=== PATIENT | male | born 1990 | race Two or more races ===

== ENCOUNTER 2018-09-10 08:57 | Emergency (ER) | payer SELFPAY ==
[~2018-09-10] VITALS: Ht 172.7 cm; Wt 124.7 kg
[2018-09-10] MEDS ORDERED: ONDANSETRON 4 MG TAB.RAPDIS PO ONE (09:00)
[2018-09-10] MEDS ORDERED: IV NS 0.9% 1,000 ML BAG IV ONE ×3 (09:00→13:00)
--- NOTE | 2018-09-10 09:10 | NUR ---
BIBA RA 89 [place] found with [place] paraphernelia and tourniquet on arm BS 144 Given Narcan on the scene. Patient a/ox1, unable to say whole name. Restless and agitated, patient has an established IV line on Left EJ G18 [employer]. Patient pulled out nasal trumpet, placed on at 2lpm via nc at 97%. Patient placed on a four point restraint, due to restlessness, agitation and attempting to pull out lines. Received order from MD. will continue to monitor for circulation and skin breakdown. Patient kept comfortable, but still restless in bed. Placed on monitor VS. BP 167/96 HR 133 R24 spo2 100%. unable to take temp at this time.
[2018-09-10 09:20] LABS: BASOPHILS % (AUTO) 0.2 % (0.0-2.0); EOSINOPHILS % (AUTO) 0.5 % (0.0-6.0); HEMATOCRIT 46 % (39-51); LYMPHOCYTES # (AUTO) 2.9 /CMM (0.8-4.8); LYMPHOCYTES % (AUTO) 14.3 % (20.0-44.0); MEAN CORPUSCULAR HGB CONC 33 g/dl (31.0-36.0); MEAN CORPUSCULAR VOLUME 88 fL (80-96); MONOCYTES # (AUTO) 0.6 /CMM (0.1-1.30); MONOCYTES % (AUTO) 3.1 % (2.0-12.0); NEUTROPHILS # (AUTO) 16.4 /CMM (1.8-8.9); NEUTROPHILS % (AUTO) 81.9 % (43.0-81.0); PLATELET COUNT (AUTO) 233 /CMM (150-450); RED BLOOD CELL COUNT(AUTO) 5.19 MIL/uL (4.5-6.0); WHITE BLOOD COUNT (AUTO) 20.1 K/uL (4.3-11.0)
[2018-09-10] MEDS ORDERED: ONDANSETRON HCL/PF 4 MG/2 ML VIAL ONE (09:20)
--- NOTE | 2018-09-10 09:20 | NUR ---
WANDED BY EVANGELINA FROM SECURITY,BELONGINGS WHICH INCLUDE A KNIFE REMOVED FROM HIS ROOM
[2018-09-10] MEDS ORDERED: ONDANSETRON HCL/PF 4 MG/2 ML VIAL IV ONE (09:30)
[2018-09-10 09:32] LABS: ALANINE AMINOTRANSFERASE 34 U/L (12-78); ALBUMIN 3.4 g/dL (3.4-5.0); BILIRUBIN,TOTAL 0.5 mg/dL (0.2-1.0); CALCIUM, SERUM 7.6 mg/dL (8.5-10.1); CARBON DIOXIDE 19 mmol/L (21-32); CHLORIDE 104 mmol/L (98-107); GLUCOSE 145 mg/dL (74-106); SODIUM SERUM 140 mmol/L (136-145); TOTAL PROTEIN, SERUM 7.5 g/dL (6.4-8.2); UREA NITROGEN, BLOOD 13 mg/dL (7-18)
--- NOTE | 2018-09-10 09:36 | NUR ---
K 6.5, partially hemolyzed per LAB. aware and ordered to repeat K level.
[2018-09-10 09:37] LABS: POTASSIUM 6.5 mmol/L (3.5-5.1)
--- NOTE | 2018-09-10 10:25 | NUR ---
patient back from CT, in stable condition. VSS. Patient a/ox2-3 now.
[2018-09-10 10:56] LABS: APPEARANCE,URINE Clear (CLEAR); BILIRUBIN,URINE Negative (NEGATIVE); BLOOD, URINE Large Ery/uL (NEGATIVE); COLOR,URINE Yellow (YELLOW); KETONES,URINE Negative (NEGATIVE); LEUKOCYTE ESTERASE ,URINE Negative (NEGATIVE); NITRITE, URINE Negative (NEGATIVE); PROTEIN,URINE 100 mg/dl (NEGATIVE); UGLUCOSE 250 MG/DL mg/dL (NEGATIVE); UROBILINOGEN,URINE 0.2 EU/dL (0.2)
[2018-09-10 11:00] LABS: BACTERIA,URINE Rare /HPF (None Seen); SQUAMOUS EPITHELIAL CELL,UR Rare /HPF (None Seen); WBC,URINE 0-2 /HPF (0-3)
[2018-09-10 12:17] LABS: CALCIUM, SERUM 7.8 mg/dL (8.5-10.1)
--- NOTE | 2018-09-10 13:14 | NUR ---
PATIENT LEFT EJ DISLODGED. REFUSED ANOTHER IV LINE AND NORMAL SALINE INFUSION AND WANTS TO LEAVE AMA, PATIENT FEELS HE'S BETTER. EXPLAINED RISKS AND BENEFITS. PATIENT STATED HE'S GOING TO HIS [facility]? GAVE ME ADDRESS [id number] [facility] DR. CARLSON EXPLAINED RISKS AND BENEFITS AND ALTERNATIVES. HR STILL ELEVATED, BUT PATIENT REFUSING FURTHER TREATMENT. PATIENT SIGNED AMA FORM AND LEFT IN STABLE CONDITION, PROVIDED A NEW SHIRT.
[2018-09-10 14:07] VITALS: BP 114/70
== END 2018-09-10 14:08 | disposition left against medical advice (07) ==
LOC: ER 09:01 → EDBD 09:01 → ER 14:08
DX: R41.82 Altered mental status, unspecified (principal)
CPT/HCPCS: 36415; 70450; 71045; 80048 ×2; 80076; 80305; 80307; 81001; 82550; 85025; 93005; 96361; 96374; 99284; J2405; J7030; 81000-TC; G0480

== ENCOUNTER 2019-05-02 13:47 | Emergency (ER) | payer OTHER ==
[~2019-05-02] VITALS: Ht 170.2 cm; Wt 90.7 kg
--- NOTE | 2019-05-02 13:50 | NUR ---
[id number] WITH [employer] FOR OTB C/O CHEST PAIN; PT ADMITS TO TAKING XANAX AND ETOH. BS=99. PATIENT A/OX4, BREATHING EVEN AND UNLABORED, NO SOB NTOED, NOTED WITH RIGHT ARM SWELLING AND REDNESS. ATTACHED TO THE CARPET CUTTER.
[2019-05-02] MEDS: IV NS 0.9% 1,000 ML BAG IV ONE (14:49)
[2019-05-02 14:52] LABS: BASOPHILS % (AUTO) 0.7 % (0.0-2.0); EOSINOPHILS % (AUTO) 1.3 % (0.0-6.0); HEMATOCRIT 42 % (39-51); HEMOGLOBIN 13.5 g/dL (13.5-17.5); LYMPHOCYTES # (AUTO) 0.9 /CMM (0.8-4.8); LYMPHOCYTES % (AUTO) 21.8 % (20.0-44.0); MEAN CORPUSCULAR HGB CONC 33 g/dl (31.0-36.0); MEAN CORPUSCULAR VOLUME 82 fL (80-96); MONOCYTES # (AUTO) 0.8 /CMM (0.1-1.30); MONOCYTES % (AUTO) 17.9 % (2.0-12.0); NEUTROPHILS # (AUTO) 2.5 /CMM (1.8-8.9); NEUTROPHILS % (AUTO) 58.3 % (43.0-81.0); PLATELET COUNT (AUTO) 263 /CMM (150-450); RED BLOOD CELL COUNT(AUTO) 5.09 MIL/uL (4.5-6.0); WHITE BLOOD COUNT (AUTO) 4.3 K/uL (4.3-11.0)
[2019-05-02 15:07] LABS: CALCIUM, SERUM 9.1 mg/dL (8.5-10.1); CARBON DIOXIDE 29 mmol/L (21-32); CHLORIDE 104 mmol/L (98-107); CREATININE 0.7 mg/dL (0.6-1.3); GLUCOSE 70 mg/dL (74-106); POTASSIUM 4.2 mmol/L (3.5-5.1); SODIUM SERUM 141 mmol/L (136-145); UREA NITROGEN, BLOOD 10 mg/dL (7-18)
[2019-05-02 15:34] LABS: EOSINOPHILS % (MANUAL) 2 % (0-4); LYMPHOCYTES % (MANUAL) 25 % (16-48); MONOCYTES % (MANUAL) 11 % (0-11.0); NEUTROPHILS % (MANUAL) 62 (42-76)
--- NOTE | 2019-05-02 16:00 | NUR ---
Patient is resting comfortably in bed with eyes closed. Easily aroused. VSS
[2019-05-02] MEDS: VANCOMYCIN 1 GM in IV D5W 250 ML IV ONE (16:11)
--- NOTE | 2019-05-02 18:01 | NUR ---
DCIV removed. Catheter intact and site benign. Pressure and 4x4 applied to site. No bleeding noted.Patient discharged to [facility] in stable condition. Written and verbal after care instructions given. Patient verbalizes understanding of instruction.
[2019-05-02 18:03] VITALS: BP 143/97
== END 2019-05-02 18:04 ==
LOC: EDBD → MERGE 13:57 → EDBD 13:57 → ER 13:57
DX: L03.113 Cellulitis of right upper limb (principal); R42 Dizziness and giddiness
CPT/HCPCS: 36415; 71045; 80048; 84484; 85025; 85652; 93005; 96361; 96365; 99284; J3370; J7030; J7060